=== PATIENT | female | born 1970 | race Caucasian/White ===

== ENCOUNTER 2018-04-30 21:04 | Emergency (ER) | payer OTHER ==
[2018-04-30] MEDS: HYDROcodone/APAP 5/325MG 1 TAB TABLET PO (22:31)
== END 2018-04-30 23:24 | disposition home or self-care (01) ==
LOC: ER 23:24
DX: S60.221A Contusion of right hand, initial encounter (principal); Z88.2 Allergy status to sulfonamides; Z91.040 Latex allergy status; W22.8XXA Striking against or struck by other objects, initial encounter; Y93.89 Activity, other specified; Y99.8 Other external cause status; Y92.89 Other specified places as the place of occurrence of the external cause
CPT/HCPCS: 73130; 99284